=== PATIENT | male | born 1960 | race Caucasian/White ===

== ENCOUNTER 2018-05-22 08:42 | Inpatient (IN) | payer BC, OTHER ==
[2018-05-22] MEDS: SODIUM CHLORIDE 0.9% 1L BAG IV* (09:34)
[2018-05-22] MEDS: ONDANSETRON 4 MG INJ IV (09:34)
[2018-05-22 09:40] LABS: ADD MAN DIFF? NO
[2018-05-22 09:45] LABS: WHITE BLOOD COUNT 15.9 10^3/ul (4.8-10.8)
[2018-05-22 09:45] LABS: BASOPHILS % 0.3 % (0.0-2.0); EOSINOPHILS # 0.8 10^3/ul (0.0-0.5); EOSINOPHILS % 5.2 % (0.0-7.0); HEMATOCRIT 41.4 % (42.0-52.0); HEMOGLOBIN 14.4 g/dl (14.0-18.0); LYMPHOCYTES % 12.4 % (15.0-51.0); MEAN CORPUSCULAR HEMOGLOBIN 31.7 pg (29.0-33.0); MEAN CORPUSCULAR HGB CONC 34.8 g/dl (32.0-37.0); MEAN CORPUSCULAR VOLUME 91.2 fl (82.0-101.0); MEAN PLATELET VOLUME 9.4 fl (7.4-10.4); MONOCYTES % 6.1 % (0.0-11.0); NEUTROPHIL # 12.1 10^3/ul (1.6-7.5); NEUTROPHILS % 75.6 % (39.0-77.0); PLATELET COUNT 250 10^3/UL (140-415); RED BLOOD COUNT 4.54 10^6/ul (4.70-6.10); RED CELL DISTRIBUTION WIDTH 12.3 % (11.5-14.5)
[2018-05-22 10:04] LABS: ALANINE AMINOTRANSFERASE 48 IU/L (13-69); ALBUMIN 4.7 g/dl (3.3-4.9); ALBUMIN/GLOBULIN RATIO 1.42; ALKALINE PHOSPHATASE 98 IU/L (42-121); ANION GAP 19 (8-16); ASPARTATE AMINO TRANSFERASE 66 IU/L (15-46); BILIRUBIN,INDIRECT 0.6 mg/dl (0-1.1); BILIRUBIN,TOTAL 0.6 mg/dl (0.2-1.3); BLOOD UREA NITROGEN 15 mg/dl (7-20); CALCIUM 9.4 mg/dl (8.4-10.2); CARBON DIOXIDE 26 mmol/L (21-31); CHLORIDE 104 mmol/L (97-110); CREATININE 1.01 mg/dl (0.61-1.24); GLUCOSE 127 mg/dl (70-220); LIPASE 346 U/L (23-300); POTASSIUM 4.7 mmol/L (3.5-5.1); SODIUM 144 mmol/L (135-144)
[2018-05-22 10:05] LABS: ADD UMIC YES; UR ASCORBIC ACID NEGATIVE (NEGATIVE); UR BACTERIA MODERATE /HPF (NONE SEEN); UR BILIRUBIN (Dip) NEGATIVE (NEGATIVE); UR BLOOD (Dip) 2+ mg/dL (NEGATIVE); UR BUDDING YEAST FEW /HPF (NONE SEEN); UR CLARITY SLIGHTLY CLOUDY (CLEAR); UR COLOR YELLOW (YELLOW); UR GLUCOSE (Dip) NEGATIVE (NEGATIVE); UR KETONES (Dip) NEGATIVE (NEGATIVE); UR LEUKOCYTE ESTERASE (Dip) 3+ Leu/ul (NEGATIVE); UR NITRITE (Dip) NEGATIVE (NEGATIVE); UR RBC 39 /HPF (0-5); UR SPECIFIC GRAVITY (Dip) 1.014 (1.003-1.030); UR TOTAL PROTEIN (Dip) 1+ mg/dl (NEGATIVE); UR UROBILINOGEN (Dip) NEGATIVE (NEGATIVE); UR WBC > 182 /HPF (0-5)
[2018-05-22 10:10] LABS: PROTIME 13.3 Sec (11.9-14.9)
[2018-05-22 10:11] LABS: PARTIAL THROMBOPLASTIN TIME 30.3 Sec (25.0-35.0)
[2018-05-22 10:13] LABS: LACTIC ACID 2.3 mmol/L (0.5-2.0)
[2018-05-22 10:15] LABS: TROPONIN-I < 0.010 ng/ml (0.000-0.120)
[2018-05-22] MEDS: CEFTRIAXONE 1 GM/50 ML (PMX) 50 ML IVPB (10:36)
[2018-05-22] MEDS: KETOROLAC 30 MG INJ IV (11:08)
[2018-05-22] MEDS ORDERED: ONDANSETRON 4 MG INJ IV (14:00)
[2018-05-22] MEDS: ACETAMINOPHEN 325 MG TAB PO ×2 (14:10→22:22)
[2018-05-22] MEDS ORDERED: GLUCAGON 1 MG INJ IM (16:30)
[2018-05-22] MEDS ORDERED: DEXTROSE 50% 50 ML SYRINGE IV ×2 (16:30)
[2018-05-22] MEDS ORDERED: GLUCOSE GEL 15 GRAM TUBE BUCCAL (16:30)
[2018-05-22] MEDS ORDERED: GLUCOSE GEL 15 GRAM TUBE PO ×2 (16:30)
[2018-05-22] MEDS: PANTOPRAZOLE (EC) 40 MG TAB PO (17:01)
[2018-05-22] MEDS: HYDROCODONE/APAP (5/325) TAB PO (17:01)
[2018-05-22 17:02] LABS: LACTIC ACID 2.1 mmol/L (0.5-2.0)
[2018-05-22] MEDS: INSULIN ASPART [NOVOLOG] 3 ML PEN SC ×2 (17:19→21:00)
[2018-05-22 18:34] LABS: LACTIC ACID 1.9 mmol/L (0.5-2.0)
[2018-05-22] MEDS: BENAZEPRIL 20 MG TAB PO (21:00)
[2018-05-22] MEDS: MEROPENEM 1 GM/50ML(PMX) 50 ML IVPB (22:15)
[2018-05-22] MEDS: ATORVASTATIN 10 MG TAB PO (22:17)
[2018-05-23] MEDS: ACCU-CHEK XX (02:00)
[2018-05-23] MEDS: MEROPENEM 1 GM/50ML(PMX) 50 ML IVPB ×3 (06:11→21:27)
[2018-05-23] MEDS: HYDROCODONE/APAP (5/325) TAB PO ×2 (06:14→21:17)
[2018-05-23] MEDS: INSULIN ASPART [NOVOLOG] 3 ML PEN SC ×4 (08:00→20:34)
[2018-05-23 08:07] LABS: ADD MAN DIFF? NO
[2018-05-23 08:16] LABS: WHITE BLOOD COUNT 17.7 10^3/ul (4.8-10.8)
[2018-05-23 08:16] LABS: BASOPHIL # 0.1 10^3/ul (0.0-0.1); BASOPHILS % 0.3 % (0.0-2.0); EOSINOPHILS # 0.4 10^3/ul (0.0-0.5); HEMATOCRIT 36.1 % (42.0-52.0); HEMOGLOBIN 12.3 g/dl (14.0-18.0); LYMPHOCYTES # 1.7 10^3/ul (0.8-2.9); LYMPHOCYTES % 9.7 % (15.0-51.0); MEAN CORPUSCULAR HEMOGLOBIN 31.3 pg (29.0-33.0); MEAN CORPUSCULAR HGB CONC 34.1 g/dl (32.0-37.0); MEAN CORPUSCULAR VOLUME 91.9 fl (82.0-101.0); MEAN PLATELET VOLUME 9.5 fl (7.4-10.4); MONOCYTES % 5.5 % (0.0-11.0); NEUTROPHIL # 14.5 10^3/ul (1.6-7.5); NEUTROPHILS % 81.7 % (39.0-77.0); PLATELET COUNT 201 10^3/UL (140-415); RED BLOOD COUNT 3.93 10^6/ul (4.70-6.10); RED CELL DISTRIBUTION WIDTH 12.4 % (11.5-14.5)
[2018-05-23 08:31] LABS: LACTIC ACID 1.4 mmol/L (0.5-2.0)
[2018-05-23 08:32] LABS: ANION GAP 13 (8-16); BLOOD UREA NITROGEN 14 mg/dl (7-20); CALCIUM 8.2 mg/dl (8.4-10.2); CARBON DIOXIDE 23 mmol/L (21-31); CHLORIDE 106 mmol/L (97-110); CREATININE 0.98 mg/dl (0.61-1.24); GLUCOSE 137 mg/dl (70-220); POTASSIUM 3.8 mmol/L (3.5-5.1); SODIUM 138 mmol/L (135-144)
[2018-05-23] MEDS: BENAZEPRIL 20 MG TAB PO (08:55)
[2018-05-23] MEDS: ASPIRIN 81 MG TAB PO (08:55)
[2018-05-23] MEDS: PANTOPRAZOLE (EC) 40 MG TAB PO (08:56)
[2018-05-23] MEDS: metFORMIN 500 MG TAB PO ×2 (08:57→17:49)
[2018-05-23 09:02] LABS: HEMOGLOBIN A1C 7.2 % (0-5.9)
[2018-05-23] MEDS ORDERED: CEFTRIAXONE 1 GM/50 ML (PMX) 50 ML IVPB ×2 (10:00→10:30)
[2018-05-23] MEDS: ACETAMINOPHEN 325 MG TAB PO ×2 (10:37→16:17)
[2018-05-23] MEDS: ATORVASTATIN 10 MG TAB PO (20:34)
[2018-05-23] MEDS: ONDANSETRON 4 MG INJ IV (21:16)
[2018-05-24] MEDS: ACCU-CHEK XX (01:02)
[2018-05-24] MEDS: HYDROCODONE/APAP (5/325) TAB PO ×3 (02:57→20:27)
[2018-05-24] MEDS: MEROPENEM 1 GM/50ML(PMX) 50 ML IVPB ×3 (05:50→21:20)
[2018-05-24] MEDS: INSULIN ASPART [NOVOLOG] 3 ML PEN SC ×4 (08:00→20:26)
[2018-05-24] MEDS: PANTOPRAZOLE (EC) 40 MG TAB PO (08:25)
[2018-05-24] MEDS: ASPIRIN 81 MG TAB PO (08:25)
[2018-05-24] MEDS: metFORMIN 500 MG TAB PO ×2 (08:25→17:26)
[2018-05-24] MEDS: BENAZEPRIL 20 MG TAB PO (08:25)
[2018-05-24 09:15] LABS: ADD MAN DIFF? NO
[2018-05-24 09:20] LABS: BASOPHILS % 0.3 % (0.0-2.0); EOSINOPHILS # 0.6 10^3/ul (0.0-0.5); EOSINOPHILS % 4.5 % (0.0-7.0); HEMOGLOBIN 12.7 g/dl (14.0-18.0); LYMPHOCYTES # 1.7 10^3/ul (0.8-2.9); LYMPHOCYTES % 11.9 % (15.0-51.0); MEAN CORPUSCULAR HEMOGLOBIN 31.3 pg (29.0-33.0); MEAN CORPUSCULAR HGB CONC 34.3 g/dl (32.0-37.0); MEAN CORPUSCULAR VOLUME 91.1 fl (82.0-101.0); MEAN PLATELET VOLUME 9.4 fl (7.4-10.4); MONOCYTE # 0.8 10^3/ul (0.3-0.9); MONOCYTES % 5.9 % (0.0-11.0); NEUTROPHIL # 10.7 10^3/ul (1.6-7.5); NEUTROPHILS % 76.7 % (39.0-77.0); PLATELET COUNT 199 10^3/UL (140-415); RED BLOOD COUNT 4.06 10^6/ul (4.70-6.10); RED CELL DISTRIBUTION WIDTH 12.6 % (11.5-14.5)
[2018-05-24 09:36] LABS: ANION GAP 13 (8-16); BLOOD UREA NITROGEN 15 mg/dl (7-20); CALCIUM 8.9 mg/dl (8.4-10.2); CARBON DIOXIDE 23 mmol/L (21-31); CHLORIDE 105 mmol/L (97-110); GLUCOSE 148 mg/dl (70-220); POTASSIUM 4.1 mmol/L (3.5-5.1); SODIUM 137 mmol/L (135-144)
[2018-05-24] MEDS: ATORVASTATIN 10 MG TAB PO (20:27)
[2018-05-24] MEDS: DOCUSATE SODIUM 100 MG CAP PO (21:20)
[2018-05-25] MEDS: ACCU-CHEK XX (01:00)
[2018-05-25] MEDS: MEROPENEM 1 GM/50ML(PMX) 50 ML IVPB ×3 (06:07→21:24)
[2018-05-25] MEDS: INSULIN ASPART [NOVOLOG] 3 ML PEN SC ×4 (08:00→20:19)
[2018-05-25] MEDS: DOCUSATE SODIUM 100 MG CAP PO ×2 (08:06→20:17)
[2018-05-25] MEDS: PANTOPRAZOLE (EC) 40 MG TAB PO (08:06)
[2018-05-25] MEDS: ASPIRIN 81 MG TAB PO (08:06)
[2018-05-25] MEDS: BENAZEPRIL 20 MG TAB PO (08:07)
[2018-05-25] MEDS: metFORMIN 500 MG TAB PO ×2 (08:07→17:45)
[2018-05-25] MEDS: HYDROCODONE/APAP (5/325) TAB PO ×2 (10:29→19:21)
[2018-05-25] MEDS: BISACODYL (EC) 5 MG TAB PO (12:09)
[2018-05-25] MEDS: ONDANSETRON 4 MG INJ IV (15:30)
[2018-05-25] MEDS: ATORVASTATIN 10 MG TAB PO (20:17)
[2018-05-25] MEDS: ACETAMINOPHEN 325 MG TAB PO (22:58)
[2018-05-26] MEDS: ACCU-CHEK XX (01:09)
[2018-05-26] MEDS: HYDROCODONE/APAP (5/325) TAB PO (05:36)
[2018-05-26] MEDS: MEROPENEM 1 GM/50ML(PMX) 50 ML IVPB ×3 (05:36→21:37)
[2018-05-26] MEDS: INSULIN ASPART [NOVOLOG] 3 ML PEN SC ×4 (08:00→20:35)
[2018-05-26] MEDS: ASPIRIN 81 MG TAB PO (08:21)
[2018-05-26] MEDS: metFORMIN 500 MG TAB PO ×2 (08:22→17:41)
[2018-05-26] MEDS: BENAZEPRIL 20 MG TAB PO (08:22)
[2018-05-26] MEDS: DOCUSATE SODIUM 100 MG CAP PO (08:22)
[2018-05-26] MEDS: PANTOPRAZOLE (EC) 40 MG TAB PO (08:25)
[2018-05-26] MEDS ORDERED: NA PHOSPHATE/BIPHOS 133 ML ENEMA PR (16:00)
[2018-05-26] MEDS: POLYETHYLENE GLYCOL 17 GM PACKET PO (16:15)
[2018-05-26] MEDS: VALACYCLOVIR 500 MG TAB PO (20:33)
[2018-05-26] MEDS: SENNA TAB PO (20:34)
[2018-05-26] MEDS: ATORVASTATIN 10 MG TAB PO (20:34)
[2018-05-27] MEDS: HYDROCODONE/APAP (5/325) TAB PO (00:15)
[2018-05-27] MEDS: ACCU-CHEK XX (02:00)
[2018-05-27] MEDS: MEROPENEM 1 GM/50ML(PMX) 50 ML IVPB ×3 (05:14→22:53)
[2018-05-27 07:48] LABS: ADD MAN DIFF? NO
[2018-05-27] MEDS: INSULIN ASPART [NOVOLOG] 3 ML PEN SC ×4 (08:00→20:46)
[2018-05-27] MEDS: ASPIRIN 81 MG TAB PO (08:06)
[2018-05-27] MEDS: metFORMIN 500 MG TAB PO ×2 (08:06→17:34)
[2018-05-27 08:07] LABS: WHITE BLOOD COUNT 5.8 10^3/ul (4.8-10.8)
[2018-05-27 08:07] LABS: BASOPHIL # 0.1 10^3/ul (0.0-0.1); BASOPHILS % 1.4 % (0.0-2.0); EOSINOPHILS # 0.7 10^3/ul (0.0-0.5); EOSINOPHILS % 12.5 % (0.0-7.0); HEMATOCRIT 38.1 % (42.0-52.0); HEMOGLOBIN 13.3 g/dl (14.0-18.0); LYMPHOCYTES # 2.1 10^3/ul (0.8-2.9); MEAN CORPUSCULAR HEMOGLOBIN 31.6 pg (29.0-33.0); MEAN CORPUSCULAR HGB CONC 34.9 g/dl (32.0-37.0); MEAN CORPUSCULAR VOLUME 90.5 fl (82.0-101.0); MEAN PLATELET VOLUME 9.2 fl (7.4-10.4); MONOCYTE # 0.7 10^3/ul (0.3-0.9); MONOCYTES % 12.5 % (0.0-11.0); PLATELET COUNT 252 10^3/UL (140-415); RED BLOOD COUNT 4.21 10^6/ul (4.70-6.10); RED CELL DISTRIBUTION WIDTH 12.2 % (11.5-14.5)
[2018-05-27] MEDS: SENNA TAB PO ×2 (08:07→20:45)
[2018-05-27] MEDS: BENAZEPRIL 20 MG TAB PO (08:07)
[2018-05-27] MEDS: PANTOPRAZOLE (EC) 40 MG TAB PO (08:07)
[2018-05-27] MEDS: VALACYCLOVIR 500 MG TAB PO (08:08)
[2018-05-27] MEDS: POLYETHYLENE GLYCOL 17 GM PACKET PO (08:08)
[2018-05-27 08:18] LABS: ANION GAP 13 (8-16); BLOOD UREA NITROGEN 14 mg/dl (7-20); CALCIUM 9.4 mg/dl (8.4-10.2); CARBON DIOXIDE 29 mmol/L (21-31); CHLORIDE 103 mmol/L (97-110); CREATININE 0.91 mg/dl (0.61-1.24); GLUCOSE 116 mg/dl (70-220); POTASSIUM 4.1 mmol/L (3.5-5.1); SODIUM 141 mmol/L (135-144)
[2018-05-27] MEDS: ACET/BUTAL/CAFF TAB PO (17:34)
[2018-05-27] MEDS: ONDANSETRON 4 MG INJ IV (17:37)
[2018-05-27] MEDS: ATORVASTATIN 10 MG TAB PO (20:45)
[2018-05-28] MEDS: ACCU-CHEK XX (02:00)
[2018-05-28] MEDS: MEROPENEM 1 GM/50ML(PMX) 50 ML IVPB ×2 (05:50→14:04)
[2018-05-28 06:15] LABS: ADD MAN DIFF? NO
[2018-05-28 06:34] LABS: WHITE BLOOD COUNT 10.1 10^3/ul (4.8-10.8)
[2018-05-28 06:34] LABS: BASOPHIL # 0.1 10^3/ul (0.0-0.1); BASOPHILS % 0.5 % (0.0-2.0); EOSINOPHILS # 0.6 10^3/ul (0.0-0.5); EOSINOPHILS % 5.6 % (0.0-7.0); HEMATOCRIT 37.7 % (42.0-52.0); HEMOGLOBIN 13.1 g/dl (14.0-18.0); LYMPHOCYTES # 2.3 10^3/ul (0.8-2.9); LYMPHOCYTES % 23.2 % (15.0-51.0); MEAN CORPUSCULAR HEMOGLOBIN 31.3 pg (29.0-33.0); MEAN CORPUSCULAR HGB CONC 34.7 g/dl (32.0-37.0); MEAN PLATELET VOLUME 9.4 fl (7.4-10.4); NEUTROPHIL # 5.9 10^3/ul (1.6-7.5); NEUTROPHILS % 58.4 % (39.0-77.0); PLATELET COUNT 284 10^3/UL (140-415); RED BLOOD COUNT 4.19 10^6/ul (4.70-6.10); RED CELL DISTRIBUTION WIDTH 12.1 % (11.5-14.5)
[2018-05-28 06:43] LABS: ANION GAP 18 (8-16); BLOOD UREA NITROGEN 37 mg/dl (7-20); CALCIUM 9.7 mg/dl (8.4-10.2); CARBON DIOXIDE 23 mmol/L (21-31); CHLORIDE 105 mmol/L (97-110); CREATININE 3.67 mg/dl (0.61-1.24); GLUCOSE 117 mg/dl (70-220); POTASSIUM 4.6 mmol/L (3.5-5.1); SODIUM 141 mmol/L (135-144)
[2018-05-28] MEDS: INSULIN ASPART [NOVOLOG] 3 ML PEN SC ×4 (08:00→21:00)
[2018-05-28] MEDS: POLYETHYLENE GLYCOL 17 GM PACKET PO (08:22)
[2018-05-28] MEDS: BENAZEPRIL 20 MG TAB PO (08:23)
[2018-05-28] MEDS: PANTOPRAZOLE (EC) 40 MG TAB PO (08:23)
[2018-05-28] MEDS: SENNA TAB PO ×2 (08:23→21:00)
[2018-05-28] MEDS: ASPIRIN 81 MG TAB PO (08:23)
[2018-05-28] MEDS: metFORMIN 500 MG TAB PO ×2 (08:23→17:38)
[2018-05-28] MEDS: SOD CHLORIDE 0.45% 1,000 ML IV ×2 (12:55→21:48)
[2018-05-28 19:39] LABS: ANION GAP 15 (8-16); BLOOD UREA NITROGEN 42 mg/dl (7-20); CALCIUM 9.3 mg/dl (8.4-10.2); CARBON DIOXIDE 23 mmol/L (21-31); CHLORIDE 103 mmol/L (97-110); CREATININE 4.29 mg/dl (0.61-1.24); GLUCOSE 138 mg/dl (70-220); POTASSIUM 4.4 mmol/L (3.5-5.1); SODIUM 137 mmol/L (135-144)
[2018-05-28] MEDS: MEROPENEM 500MG/50 ML (PMX) 50 ML IVPB (20:28)
[2018-05-28] MEDS: ATORVASTATIN 10 MG TAB PO (20:29)
[2018-05-28] MEDS: HYDROCODONE/APAP (5/325) TAB PO (21:49)
[2018-05-29] MEDS: ACCU-CHEK XX (01:56)
[2018-05-29] MEDS: INSULIN ASPART [NOVOLOG] 3 ML PEN SC ×4 (08:00→21:00)
[2018-05-29 08:02] LABS: ADD MAN DIFF? NO
[2018-05-29 08:16] LABS: BASOPHIL # 0.1 10^3/ul (0.0-0.1); BASOPHILS % 0.8 % (0.0-2.0); EOSINOPHILS # 0.7 10^3/ul (0.0-0.5); EOSINOPHILS % 9.8 % (0.0-7.0); HEMATOCRIT 36.2 % (42.0-52.0); HEMOGLOBIN 12.4 g/dl (14.0-18.0); LYMPHOCYTES # 2.3 10^3/ul (0.8-2.9); LYMPHOCYTES % 30.6 % (15.0-51.0); MEAN CORPUSCULAR HEMOGLOBIN 31.3 pg (29.0-33.0); MEAN CORPUSCULAR HGB CONC 34.3 g/dl (32.0-37.0); MEAN CORPUSCULAR VOLUME 91.4 fl (82.0-101.0); MEAN PLATELET VOLUME 9.3 fl (7.4-10.4); MONOCYTE # 0.7 10^3/ul (0.3-0.9); MONOCYTES % 9.5 % (0.0-11.0); NEUTROPHIL # 3.6 10^3/ul (1.6-7.5); NEUTROPHILS % 47.3 % (39.0-77.0); PLATELET COUNT 279 10^3/UL (140-415); RED BLOOD COUNT 3.96 10^6/ul (4.70-6.10); RED CELL DISTRIBUTION WIDTH 12.1 % (11.5-14.5)
[2018-05-29 08:16] LABS: WHITE BLOOD COUNT 7.6 10^3/ul (4.8-10.8)
[2018-05-29 08:46] LABS: CREATINE KINASE 51 IU/L (23-200)
[2018-05-29] MEDS: SENNA TAB PO ×2 (08:47→21:13)
[2018-05-29] MEDS: PANTOPRAZOLE (EC) 40 MG TAB PO (08:47)
[2018-05-29] MEDS: metFORMIN 500 MG TAB PO (08:47)
[2018-05-29] MEDS: ASPIRIN 81 MG TAB PO (08:47)
[2018-05-29] MEDS: POLYETHYLENE GLYCOL 17 GM PACKET PO (08:48)
[2018-05-29] MEDS: MEROPENEM 500MG/50 ML (PMX) 50 ML IVPB (08:48)
[2018-05-29 08:50] LABS: ANION GAP 16 (8-16); BLOOD UREA NITROGEN 41 mg/dl (7-20); CALCIUM 9.3 mg/dl (8.4-10.2); CARBON DIOXIDE 23 mmol/L (21-31); CHLORIDE 104 mmol/L (97-110); CREATININE 3.93 mg/dl (0.61-1.24); GLUCOSE 116 mg/dl (70-220); POTASSIUM 4.6 mmol/L (3.5-5.1); SODIUM 138 mmol/L (135-144)
[2018-05-29] MEDS: SOD CHLORIDE 0.45% 1,000 ML IV (12:30)
[2018-05-29 15:02] LABS: CREATININE,URINE RANDOM 68.05 mg/dl (20-370); PROTEIN/CREAT RATIO 0.32 RATIO
[2018-05-29 15:02] LABS: SODIUM,URINE RANDOM 80 mmol/L (30-90)
[2018-05-29] MEDS: ONDANSETRON 4 MG INJ IV (16:13)
[2018-05-29] MEDS: ATORVASTATIN 10 MG TAB PO (21:14)
[2018-05-30] MEDS: ACCU-CHEK XX (02:00)
[2018-05-30] MEDS: SOD CHLORIDE 0.45% 1,000 ML IV ×3 (03:51→21:05)
[2018-05-30 05:37] LABS: ANION GAP 19 (8-16); BLOOD UREA NITROGEN 33 mg/dl (7-20); CALCIUM 9.5 mg/dl (8.4-10.2); CARBON DIOXIDE 23 mmol/L (21-31); CHLORIDE 108 mmol/L (97-110); CREATININE 2.48 mg/dl (0.61-1.24); GLUCOSE 125 mg/dl (70-220); POTASSIUM 4.6 mmol/L (3.5-5.1); SODIUM 145 mmol/L (135-144)
[2018-05-30] MEDS: ONDANSETRON 4 MG INJ IV (07:42)
[2018-05-30] MEDS: INSULIN ASPART [NOVOLOG] 3 ML PEN SC ×6 (07:54→21:00)
[2018-05-30] MEDS: PANTOPRAZOLE (EC) 40 MG TAB PO (09:07)
[2018-05-30] MEDS: ASPIRIN 81 MG TAB PO (09:07)
[2018-05-30] MEDS: POLYETHYLENE GLYCOL 17 GM PACKET PO (09:07)
[2018-05-30] MEDS: SENNA TAB PO ×2 (09:07→21:04)
[2018-05-30] MEDS: ATORVASTATIN 10 MG TAB PO (21:05)
[2018-05-31] MEDS: ACCU-CHEK XX (02:00)
[2018-05-31 06:50] LABS: ADD MAN DIFF? NO
[2018-05-31 07:02] LABS: BASOPHIL # 0.1 10^3/ul (0.0-0.1); BASOPHILS % 0.7 % (0.0-2.0); EOSINOPHILS # 0.7 10^3/ul (0.0-0.5); EOSINOPHILS % 10.4 % (0.0-7.0); HEMATOCRIT 36.1 % (42.0-52.0); HEMOGLOBIN 12.5 g/dl (14.0-18.0); LYMPHOCYTES # 2.7 10^3/ul (0.8-2.9); LYMPHOCYTES % 39.8 % (15.0-51.0); MEAN CORPUSCULAR HEMOGLOBIN 31.2 pg (29.0-33.0); MEAN CORPUSCULAR HGB CONC 34.6 g/dl (32.0-37.0); MONOCYTE # 0.5 10^3/ul (0.3-0.9); MONOCYTES % 7.7 % (0.0-11.0); NEUTROPHIL # 2.7 10^3/ul (1.6-7.5); NEUTROPHILS % 40.5 % (39.0-77.0); PLATELET COUNT 319 10^3/UL (140-415); RED BLOOD COUNT 4.01 10^6/ul (4.70-6.10); RED CELL DISTRIBUTION WIDTH 11.9 % (11.5-14.5)
[2018-05-31 07:02] LABS: WHITE BLOOD COUNT 6.8 10^3/ul (4.8-10.8)
[2018-05-31 07:36] LABS: ANION GAP 19 (8-16); BLOOD UREA NITROGEN 21 mg/dl (7-20); CALCIUM 9.1 mg/dl (8.4-10.2); CARBON DIOXIDE 22 mmol/L (21-31); CHLORIDE 109 mmol/L (97-110); CREATININE 1.44 mg/dl (0.61-1.24); GLUCOSE 110 mg/dl (70-220); POTASSIUM 4.6 mmol/L (3.5-5.1); SODIUM 145 mmol/L (135-144)
[2018-05-31] MEDS: INSULIN ASPART [NOVOLOG] 3 ML PEN SC ×4 (08:00→21:00)
[2018-05-31] MEDS: ASPIRIN 81 MG TAB PO (08:31)
[2018-05-31] MEDS: SENNA TAB PO ×2 (08:31→20:23)
[2018-05-31] MEDS: PANTOPRAZOLE (EC) 40 MG TAB PO (08:31)
[2018-05-31] MEDS: SOD CHLORIDE 0.45% 1,000 ML IV (08:32)
[2018-05-31] MEDS: POLYETHYLENE GLYCOL 17 GM PACKET PO (08:32)
[2018-05-31] MEDS: ATORVASTATIN 10 MG TAB PO (20:23)
[2018-06-01] MEDS: ACCU-CHEK XX (02:00)
[2018-06-01] MEDS: SOD CHLORIDE 0.45% 1,000 ML IV (02:38)
[2018-06-01 07:21] LABS: ANION GAP 17 (8-16); BLOOD UREA NITROGEN 14 mg/dl (7-20); CARBON DIOXIDE 25 mmol/L (21-31); CHLORIDE 108 mmol/L (97-110); CREATININE 1.11 mg/dl (0.61-1.24); GLUCOSE 138 mg/dl (70-220); POTASSIUM 4.3 mmol/L (3.5-5.1); SODIUM 146 mmol/L (135-144)
[2018-06-01] MEDS: INSULIN ASPART [NOVOLOG] 3 ML PEN SC ×2 (07:56→12:37)
[2018-06-01] MEDS: PANTOPRAZOLE (EC) 40 MG TAB PO (08:22)
[2018-06-01] MEDS: ASPIRIN 81 MG TAB PO (08:22)
[2018-06-01] MEDS: SENNA TAB PO (08:23)
[2018-06-01] MEDS: POLYETHYLENE GLYCOL 17 GM PACKET PO (08:24)
== END 2018-06-01 15:40 | disposition home or self-care (01) | DRG 871 ==
LOC: FTE 08:42 → 2NE 13:33
DX: A41.9 Sepsis, unspecified organism (principal); N17.0 Acute kidney failure with tubular necrosis; N30.00 Acute cystitis without hematuria; I10 Essential (primary) hypertension; E78.5 Hyperlipidemia, unspecified; E87.6 Hypokalemia; B00.1 Herpesviral vesicular dermatitis; G44.209 Tension-type headache, unspecified, not intractable; R65.20 Severe sepsis without septic shock; Z87.891 Personal history of nicotine dependence; Z79.4 Long term (current) use of insulin; Z79.84 Long term (current) use of oral hypoglycemic drugs; Z79.82 Long term (current) use of aspirin; I25.2 Old myocardial infarction; Z86.13 Personal history of malaria
CPT/HCPCS: 36415; 70450; 70551; 71045; 76775; 80048; 80053; 81001; 81003; 82550; 82570; 82962; 83036; 83605; 83690; 84300; 84484; 84560; 85025; 85610; 85730; 87040; 87086; 89190; 93005; 96365; 96366; 96375; 99291-25

== ENCOUNTER 2018-11-08 22:44 | Inpatient (IN) | payer BC ==
[2018-11-08 23:36] LABS: ADD MAN DIFF? NO
[2018-11-08] MEDS: morphine 4 MG/ML VIAL IV (23:40)
[2018-11-08] MEDS: CEFTRIAXONE 1 GM/50 ML (PMX) 50 ML IVPB (23:40)
[2018-11-08 23:41] LABS: WHITE BLOOD COUNT 14.8 10^3/ul (4.8-10.8)
[2018-11-08 23:41] LABS: BASOPHILS % 0.3 % (0.0-2.0); EOSINOPHILS # 0.5 10^3/ul (0.0-0.5); EOSINOPHILS % 3.2 % (0.0-7.0); HEMATOCRIT 40.7 % (42.0-52.0); LYMPHOCYTES # 1.2 10^3/ul (0.8-2.9); LYMPHOCYTES % 8.2 % (15.0-51.0); MEAN CORPUSCULAR HEMOGLOBIN 30.6 pg (29.0-33.0); MEAN CORPUSCULAR HGB CONC 34.4 g/dl (32.0-37.0); MEAN CORPUSCULAR VOLUME 89.1 fl (82.0-101.0); MEAN PLATELET VOLUME 9.6 fl (7.4-10.4); MONOCYTE # 0.9 10^3/ul (0.3-0.9); MONOCYTES % 5.9 % (0.0-11.0); NEUTROPHIL # 12.1 10^3/ul (1.6-7.5); NEUTROPHILS % 82.1 % (39.0-77.0); PLATELET COUNT 209 10^3/UL (140-415); RED BLOOD COUNT 4.57 10^6/ul (4.70-6.10); RED CELL DISTRIBUTION WIDTH 11.9 % (11.5-14.5)
[2018-11-08] MEDS: SODIUM CHLORIDE 0.9% 1L BAG IV* (23:41)
[2018-11-08 23:58] LABS: UR BACTERIA MODERATE /HPF (NONE SEEN); UR RBC > 182 /HPF (0-5); UR WBC > 182 /HPF (0-5)
[2018-11-09] LABS: ALANINE AMINOTRANSFERASE 42 IU/L (13-69); ALBUMIN 4.5 g/dl (3.3-4.9); ALBUMIN/GLOBULIN RATIO 1.28; ALKALINE PHOSPHATASE 107 IU/L (42-121); ANION GAP 10 (5-13); ASPARTATE AMINO TRANSFERASE 48 IU/L (15-46); BILIRUBIN,INDIRECT 1.5 mg/dl (0-1.1); BILIRUBIN,TOTAL 1.5 mg/dl (0.2-1.3); BLOOD UREA NITROGEN 12 mg/dl (7-20); CALCIUM 9.4 mg/dl (8.4-10.2); CARBON DIOXIDE 24 mmol/L (21-31); CHLORIDE 104 mmol/L (97-110); Estimated GFR > 60 mL/min (>60); GLUCOSE 253 mg/dl (70-220); LIPASE 73 U/L (23-300); PARTIAL THROMBOPLASTIN TIME 34.2 Sec (23.0-35.0); POTASSIUM 3.8 mmol/L (3.5-5.1); PROTIME 14.3 Sec (11.9-14.9); PT RATIO 1.1; SODIUM 138 mmol/L (135-144)
[2018-11-09 00:12] LABS: ADD UMIC YES; TROPONIN-I < 0.012 ng/ml (0.000-0.120); UR ASCORBIC ACID NEGATIVE (NEGATIVE); UR BILIRUBIN (Dip) NEGATIVE (NEGATIVE); UR BLOOD (Dip) 2+ mg/dL (NEGATIVE); UR CLARITY TURBID (CLEAR); UR COLOR AMBER (YELLOW); UR GLUCOSE (Dip) 2+ mg/dL (NEGATIVE); UR KETONES (Dip) TRACE mg/dL (NEGATIVE); UR LEUKOCYTE ESTERASE (Dip) 2+ Leu/ul (NEGATIVE); UR MUCUS MANY /HPF (NONE SEEN); UR NITRITE (Dip) NEGATIVE (NEGATIVE); UR SPECIFIC GRAVITY (Dip) 1.031 (1.003-1.030); UR TOTAL PROTEIN (Dip) 2+ mg/dl (NEGATIVE); UR UROBILINOGEN (Dip) 2+ mg/dL (NEGATIVE)
[2018-11-09 01:16] LABS: C-REACTIVE PROTEIN 19.1 mg/dl (0.0-0.9)
[2018-11-09] MEDS: ACCU-CHEK XX (02:00)
[2018-11-09] MEDS: SOD CHLORIDE 0.9% 1,000 ML IV ×3 (02:13→22:14)
[2018-11-09 02:28] LABS: LACTIC ACID 1.3 mmol/L (0.5-2.0)
[2018-11-09] MEDS ORDERED: DEXTROSE 50% 50 ML SYRINGE IV ×2 (02:30)
[2018-11-09] MEDS ORDERED: GLUCOSE GEL 15 GRAM TUBE PO ×2 (02:30)
[2018-11-09] MEDS ORDERED: GLUCOSE GEL 15 GRAM TUBE BUCCAL (02:30)
[2018-11-09] MEDS ORDERED: GLUCAGON 1 MG INJ IM (02:30)
[2018-11-09] MEDS: morphine 2 MG INJ IV ×3 (04:20→18:48)
[2018-11-09] MEDS: ACETAMINOPHEN 325 MG TAB PO ×2 (04:26→15:41)
[2018-11-09 04:47] LABS: ADD MAN DIFF? NO
[2018-11-09] MEDS: ONDANSETRON 4 MG INJ IV (04:47)
[2018-11-09 04:48] LABS: BASOPHIL # 0.1 10^3/ul (0.0-0.1); BASOPHILS % 0.4 % (0.0-2.0); EOSINOPHILS # 0.1 10^3/ul (0.0-0.5); EOSINOPHILS % 0.7 % (0.0-7.0); HEMATOCRIT 40.1 % (42.0-52.0); HEMOGLOBIN 13.3 g/dl (14.0-18.0); LYMPHOCYTES # 1.7 10^3/ul (0.8-2.9); LYMPHOCYTES % 12.3 % (15.0-51.0); MEAN CORPUSCULAR HEMOGLOBIN 30.9 pg (29.0-33.0); MEAN CORPUSCULAR HGB CONC 33.2 g/dl (32.0-37.0); MEAN CORPUSCULAR VOLUME 93.3 fl (82.0-101.0); MEAN PLATELET VOLUME 9.6 fl (7.4-10.4); MONOCYTE # 0.2 10^3/ul (0.3-0.9); MONOCYTES % 1.1 % (0.0-11.0); NEUTROPHIL # 11.4 10^3/ul (1.6-7.5); NEUTROPHILS % 84.9 % (39.0-77.0); PLATELET COUNT 197 10^3/UL (140-415); POSITIVE DIFF @See below; RED CELL DISTRIBUTION WIDTH 12.1 % (11.5-14.5)
[2018-11-09 04:48] LABS: WHITE BLOOD COUNT 13.5 10^3/ul (4.8-10.8)
[2018-11-09 05:08] LABS: CREATINE KINASE 165 IU/L (23-200)
[2018-11-09 05:09] LABS: LACTIC ACID 4.7 mmol/L (0.5-2.0)
[2018-11-09 05:12] LABS: ANION GAP 9 (5-13); BLOOD UREA NITROGEN 10 mg/dl (7-20); CALCIUM 8.8 mg/dl (8.4-10.2); CARBON DIOXIDE 23 mmol/L (21-31); CHLORIDE 108 mmol/L (97-110); CREATININE 1.12 mg/dl (0.61-1.24); Estimated GFR > 60 mL/min (>60); GLUCOSE 220 mg/dl (70-220); POTASSIUM 4.5 mmol/L (3.5-5.1); SODIUM 140 mmol/L (135-144)
[2018-11-09 05:21] LABS: CK INDEX 0.4; CK-MB 0.64 ng/ml (0.0-2.4); TROPONIN-I 0.012 ng/ml (0.000-0.120)
[2018-11-09 07:12] LABS: ANISOCYTOSIS 1+ (0-0); BAND NEUTROPHILS % (M) 8 % (0-4); LYMPHOCYTES #M 1.8 10^3/ul (0.8-2.9); LYMPHOCYTES % (M) 14 % (15-51); MICROCYTOSIS 1+ (0-0); MONOCYTE #M 0.6 10^3/ul (0.3-0.9); MONOCYTES % (M) 5 % (0-11); PLATELET ESTIMATE NORMAL; SEGMENTED NEUTROPHILS (M) % 73 % (39-77); SMUDGE%M 2 % (0-0)
[2018-11-09] MEDS: ENOXAPARIN 30 MG/0.3 ML SYG SC (08:05)
[2018-11-09] MEDS: INSULIN ASPART [NOVOLOG] 3 ML PEN SC ×4 (08:09→20:54)
[2018-11-09 08:50] LABS: LACTIC ACID 1.8 mmol/L (0.5-2.0)
[2018-11-09 09:32] LABS: CREATINE KINASE 144 IU/L (23-200)
[2018-11-09 09:44] LABS: CK INDEX 0.4; CK-MB 0.57 ng/ml (0.0-2.4); TROPONIN-I < 0.012 ng/ml (0.000-0.120)
[2018-11-09] MEDS ORDERED: metFORMIN 500 MG TAB PO (21:00)
[2018-11-09] MEDS: CEFTRIAXONE 1 GM/50 ML (PMX) 50 ML IVPB (23:03)
[2018-11-10] MEDS: morphine 2 MG INJ IV ×3 (01:01→17:13)
[2018-11-10] MEDS: ACETAMINOPHEN 325 MG TAB PO ×3 (02:00→20:41)
[2018-11-10] MEDS: ACCU-CHEK XX (02:00)
[2018-11-10] MEDS: metFORMIN 500 MG TAB PO ×2 (07:50→17:28)
[2018-11-10] MEDS: SOD CHLORIDE 0.9% 1,000 ML IV ×3 (07:50→20:48)
[2018-11-10] MEDS: INSULIN ASPART [NOVOLOG] 3 ML PEN SC ×4 (07:52→20:45)
[2018-11-10] MEDS: FAMOTIDINE 20 MG TAB PO (08:36)
[2018-11-10] MEDS: ASPIRIN 81 MG TAB PO (08:36)
[2018-11-10] MEDS: BENAZEPRIL 20 MG TAB PO (08:37)
[2018-11-10] MEDS: ENOXAPARIN 30 MG/0.3 ML SYG SC (08:39)
[2018-11-11] MEDS: CEFTRIAXONE 1 GM/50 ML (PMX) 50 ML IVPB ×2 (00:13→23:37)
[2018-11-11] MEDS: HYDROmorphONE 1 MG/ML SYG IV ×3 (00:16→17:22)
[2018-11-11] MEDS: ACCU-CHEK XX (02:00)
[2018-11-11] MEDS: ACETAMINOPHEN 325 MG TAB PO (06:41)
[2018-11-11 07:56] LABS: ADD MAN DIFF? NO
[2018-11-11 08:01] LABS: BASOPHILS % 0.5 % (0.0-2.0); EOSINOPHILS # 0.5 10^3/ul (0.0-0.5); EOSINOPHILS % 7.6 % (0.0-7.0); HEMOGLOBIN 11.7 g/dl (14.0-18.0); MEAN CORPUSCULAR HEMOGLOBIN 30.9 pg (29.0-33.0); MEAN CORPUSCULAR HGB CONC 34.4 g/dl (32.0-37.0); MEAN CORPUSCULAR VOLUME 89.7 fl (82.0-101.0); MEAN PLATELET VOLUME 9.9 fl (7.4-10.4); MONOCYTE # 0.4 10^3/ul (0.3-0.9); MONOCYTES % 6.2 % (0.0-11.0); NEUTROPHIL # 4.4 10^3/ul (1.6-7.5); NEUTROPHILS % 69.9 % (39.0-77.0); PLATELET COUNT 181 10^3/UL (140-415); RED BLOOD COUNT 3.79 10^6/ul (4.70-6.10)
[2018-11-11 08:01] LABS: WHITE BLOOD COUNT 6.3 10^3/ul (4.8-10.8)
[2018-11-11] MEDS: ASPIRIN 81 MG TAB PO (08:53)
[2018-11-11] MEDS: BENAZEPRIL 20 MG TAB PO (08:53)
[2018-11-11] MEDS: FAMOTIDINE 20 MG TAB PO (08:54)
[2018-11-11] MEDS: metFORMIN 500 MG TAB PO ×2 (08:54→17:12)
[2018-11-11 08:55] LABS: ANION GAP 5 (5-13); BLOOD UREA NITROGEN 7 mg/dl (7-20); CALCIUM 8.9 mg/dl (8.4-10.2); CARBON DIOXIDE 23 mmol/L (21-31); CHLORIDE 109 mmol/L (97-110); CREATININE 0.83 mg/dl (0.61-1.24); Estimated GFR > 60 mL/min (>60); GLUCOSE 182 mg/dl (70-220); SODIUM 137 mmol/L (135-144)
[2018-11-11] MEDS: INSULIN ASPART [NOVOLOG] 3 ML PEN SC ×4 (08:56→20:41)
[2018-11-11] MEDS: ENOXAPARIN 30 MG/0.3 ML SYG SC (08:56)
[2018-11-11 08:58] LABS: HEMOGLOBIN A1C 8.7 % (0-5.9)
[2018-11-11] MEDS: SOD CHLORIDE 0.9% 1,000 ML IV ×2 (09:00→17:12)
[2018-11-11] MEDS: ONDANSETRON 4 MG INJ IV (17:18)
[2018-11-11] MEDS: HYDROCODONE/APAP (5/325) TAB PO (20:42)
[2018-11-12] MEDS: ACCU-CHEK XX ×2 (01:34→21:23)
[2018-11-12] MEDS: HYDROmorphONE 1 MG/ML SYG IV (02:15)
[2018-11-12] MEDS: SOD CHLORIDE 0.9% 1,000 ML IV ×5 (02:16→20:35)
[2018-11-12 05:56] LABS: ADD MAN DIFF? NO
[2018-11-12 06:06] LABS: WHITE BLOOD COUNT 4.5 10^3/ul (4.8-10.8)
[2018-11-12 06:06] LABS: BASOPHILS % 0.7 % (0.0-2.0); EOSINOPHILS # 0.5 10^3/ul (0.0-0.5); EOSINOPHILS % 12.1 % (0.0-7.0); HEMATOCRIT 32.5 % (42.0-52.0); LYMPHOCYTES # 1.4 10^3/ul (0.8-2.9); LYMPHOCYTES % 30.8 % (15.0-51.0); MEAN CORPUSCULAR HEMOGLOBIN 30.5 pg (29.0-33.0); MEAN CORPUSCULAR HGB CONC 33.8 g/dl (32.0-37.0); MEAN PLATELET VOLUME 9.9 fl (7.4-10.4); MONOCYTE # 0.5 10^3/ul (0.3-0.9); MONOCYTES % 11.7 % (0.0-11.0); NEUTROPHIL # 1.9 10^3/ul (1.6-7.5); NEUTROPHILS % 42.5 % (39.0-77.0); PLATELET COUNT 201 10^3/UL (140-415); RED BLOOD COUNT 3.61 10^6/ul (4.70-6.10); RED CELL DISTRIBUTION WIDTH 11.9 % (11.5-14.5)
[2018-11-12] MEDS: ASPIRIN 81 MG TAB PO (08:12)
[2018-11-12] MEDS: FAMOTIDINE 20 MG TAB PO (08:12)
[2018-11-12] MEDS: metFORMIN 500 MG TAB PO ×2 (08:12→17:26)
[2018-11-12] MEDS: BENAZEPRIL 20 MG TAB PO (08:13)
[2018-11-12] MEDS: INSULIN ASPART [NOVOLOG] 3 ML PEN SC ×4 (08:17→21:00)
[2018-11-12] MEDS: ENOXAPARIN 30 MG/0.3 ML SYG SC (08:18)
[2018-11-12] MEDS: ACETAMINOPHEN 325 MG TAB PO (11:36)
[2018-11-12] MEDS: HYDROCODONE/APAP (5/325) TAB PO (13:49)
[2018-11-12] MEDS: CIPROFLOXACIN 500 MG TAB PO (17:28)
[2018-11-12] MEDS: INSULIN GLARGINE [LANTus] (100 UNITS/ML) SYG SC (21:20)
[2018-11-13] MEDS: SOD CHLORIDE 0.9% 1,000 ML IV (00:28)
[2018-11-13 05:49] LABS: ADD MAN DIFF? NO
[2018-11-13 05:51] LABS: BASOPHIL # 0.1 10^3/ul (0.0-0.1); BASOPHILS % 1.1 % (0.0-2.0); EOSINOPHILS # 0.6 10^3/ul (0.0-0.5); EOSINOPHILS % 10.2 % (0.0-7.0); HEMATOCRIT 37.5 % (42.0-52.0); HEMOGLOBIN 12.6 g/dl (14.0-18.0); LYMPHOCYTES # 1.7 10^3/ul (0.8-2.9); LYMPHOCYTES % 30.3 % (15.0-51.0); MEAN CORPUSCULAR HEMOGLOBIN 29.9 pg (29.0-33.0); MEAN CORPUSCULAR HGB CONC 33.6 g/dl (32.0-37.0); MEAN CORPUSCULAR VOLUME 88.9 fl (82.0-101.0); MEAN PLATELET VOLUME 9.5 fl (7.4-10.4); MONOCYTE # 0.7 10^3/ul (0.3-0.9); MONOCYTES % 11.8 % (0.0-11.0); NEUTROPHIL # 2.4 10^3/ul (1.6-7.5); NEUTROPHILS % 42.9 % (39.0-77.0); PLATELET COUNT 247 10^3/UL (140-415); RED BLOOD COUNT 4.22 10^6/ul (4.70-6.10)
[2018-11-13 05:51] LABS: WHITE BLOOD COUNT 5.7 10^3/ul (4.8-10.8)
[2018-11-13] MEDS: CIPROFLOXACIN 500 MG TAB PO (06:00)
[2018-11-13 06:32] LABS: ANION GAP 12 (5-13); BLOOD UREA NITROGEN 9 mg/dl (7-20); CALCIUM 9.4 mg/dl (8.4-10.2); CARBON DIOXIDE 26 mmol/L (21-31); CHLORIDE 104 mmol/L (97-110); CREATININE 0.89 mg/dl (0.61-1.24); Estimated GFR > 60 mL/min (>60); GLUCOSE 134 mg/dl (70-220); POTASSIUM 3.5 mmol/L (3.5-5.1); SODIUM 142 mmol/L (135-144)
[2018-11-13] MEDS: INSULIN ASPART [NOVOLOG] 3 ML PEN SC ×2 (08:00→12:00)
[2018-11-13] MEDS: ASPIRIN 81 MG TAB PO (08:09)
[2018-11-13] MEDS: BENAZEPRIL 20 MG TAB PO (08:09)
[2018-11-13] MEDS: LINAGLIPTIN 5 MG TABLET PO (08:09)
[2018-11-13] MEDS: FAMOTIDINE 20 MG TAB PO (08:10)
[2018-11-13] MEDS: metFORMIN 500 MG TAB PO (08:10)
[2018-11-13] MEDS: ENOXAPARIN 30 MG/0.3 ML SYG SC (08:12)
== END 2018-11-13 13:50 | disposition home or self-care (01) | DRG 872 ==
LOC: E/R 22:44 → 2NE 11-09 00:19
PROVIDERS: Internal Medicine
DX: A41.9 Sepsis, unspecified organism (principal); N39.0 Urinary tract infection, site not specified; B96.20 Unspecified Escherichia coli [E. coli] as the cause of diseases classified elsewhere; E11.9 Type 2 diabetes mellitus without complications; E78.5 Hyperlipidemia, unspecified; I10 Essential (primary) hypertension; I25.10 Atherosclerotic heart disease of native coronary artery without angina pectoris; N40.0 Benign prostatic hyperplasia without lower urinary tract symptoms; R07.9 Chest pain, unspecified; R51 Headache; I25.2 Old myocardial infarction; Z79.84 Long term (current) use of oral hypoglycemic drugs; Z87.891 Personal history of nicotine dependence
CPT/HCPCS: 36415; 70450; 71045; 74176; 80048; 80053; 81001; 82550; 82553; 82962; 83036; 83605; 83690; 84484; 85025; 85610; 85730; 86140; 87040; 87086; 93005; 96365; 96375; 99291-25

== ENCOUNTER 2018-12-04 15:34 | Emergency (ER) | payer BC ==
[2018-12-05 00:12] LABS: ADD MAN DIFF? NO
[2018-12-05 00:17] LABS: BASOPHIL # 0.1 10^3/ul (0.0-0.1); BASOPHILS % 0.4 % (0.0-2.0); EOSINOPHILS # 0.7 10^3/ul (0.0-0.5); EOSINOPHILS % 4.6 % (0.0-7.0); HEMATOCRIT 36.9 % (42.0-52.0); HEMOGLOBIN 12.4 g/dl (14.0-18.0); LYMPHOCYTES # 3.2 10^3/ul (0.8-2.9); LYMPHOCYTES % 20.6 % (15.0-51.0); MEAN CORPUSCULAR HEMOGLOBIN 30.5 pg (29.0-33.0); MEAN CORPUSCULAR HGB CONC 33.6 g/dl (32.0-37.0); MEAN CORPUSCULAR VOLUME 90.9 fl (82.0-101.0); MEAN PLATELET VOLUME 9.4 fl (7.4-10.4); MONOCYTE # 1.3 10^3/ul (0.3-0.9); MONOCYTES % 8.6 % (0.0-11.0); NEUTROPHIL # 10.1 10^3/ul (1.6-7.5); NEUTROPHILS % 65.3 % (39.0-77.0); PLATELET COUNT 290 10^3/UL (140-415); RED BLOOD COUNT 4.06 10^6/ul (4.70-6.10); RED CELL DISTRIBUTION WIDTH 12.7 % (11.5-14.5)
[2018-12-05 00:17] LABS: WHITE BLOOD COUNT 15.5 10^3/ul (4.8-10.8)
[2018-12-05] MEDS: SODIUM CHLORIDE 0.9% 1L BAG IV* ×2 (00:19→00:56)
[2018-12-05 00:22] LABS: URINE PH (Dip) POC 5.5 (5.0-8.5)
[2018-12-05 00:22] LABS: URINE BLOOD (Dip) POC 2+ (NEGATIVE); URINE GLUCOSE (Dip) POC Negative (NEGATIVE); URINE KETONES (Dip) POC Negative (NEGATIVE); URINE LEUKOCYTE EST (Dip) POC 1+ (NEGATIVE); URINE NITRITE (Dip) POC Negative (NEGATIVE); URINE TOTAL PROTEIN POC 1+ (NEGATIVE)
[2018-12-05 00:32] LABS: LACTIC ACID 1.8 mmol/L (0.5-2.0)
[2018-12-05 00:34] LABS: ALANINE AMINOTRANSFERASE 41 IU/L (13-69); ALBUMIN 4.6 g/dl (3.3-4.9); ALBUMIN/GLOBULIN RATIO 1.39; ALKALINE PHOSPHATASE 100 IU/L (42-121); ANION GAP 14 (5-13); ASPARTATE AMINO TRANSFERASE 44 IU/L (15-46); BILIRUBIN,INDIRECT 0.9 mg/dl (0-1.1); BILIRUBIN,TOTAL 0.9 mg/dl (0.2-1.3); BLOOD UREA NITROGEN 16 mg/dl (7-20); CALCIUM 9.8 mg/dl (8.4-10.2); CARBON DIOXIDE 25 mmol/L (21-31); CHLORIDE 101 mmol/L (97-110); Estimated GFR > 60 mL/min (>60); GLUCOSE 133 mg/dl (70-220); POTASSIUM 4.2 mmol/L (3.5-5.1); SODIUM 140 mmol/L (135-144); TOTAL PROTEIN 7.9 g/dl (6.1-8.1)
[2018-12-05 00:36] LABS: INR 0.99; PARTIAL THROMBOPLASTIN TIME 33.5 Sec (23.0-35.0); PROTIME 13.2 Sec (11.9-14.9)
[2018-12-05 00:45] LABS: TROPONIN-I < 0.012 ng/ml (0.000-0.120)
[2018-12-05 00:54] LABS: ADD UMIC YES; UR ASCORBIC ACID NEGATIVE (NEGATIVE); UR BACTERIA FEW /HPF (NONE SEEN); UR BILIRUBIN (Dip) NEGATIVE (NEGATIVE); UR BLOOD (Dip) 2+ mg/dL (NEGATIVE); UR CLARITY CLOUDY (CLEAR); UR COLOR YELLOW (YELLOW); UR GLUCOSE (Dip) NEGATIVE (NEGATIVE); UR KETONES (Dip) NEGATIVE (NEGATIVE); UR LEUKOCYTE ESTERASE (Dip) 3+ Leu/ul (NEGATIVE); UR MUCUS FEW /HPF (NONE SEEN); UR NITRITE (Dip) NEGATIVE (NEGATIVE); UR RBC 17 /HPF (0-5); UR SPECIFIC GRAVITY (Dip) 1.027 (1.003-1.030); UR TOTAL PROTEIN (Dip) 1+ mg/dl (NEGATIVE); UR UROBILINOGEN (Dip) NEGATIVE (NEGATIVE); UR WBC > 182 /HPF (0-5)
[2018-12-05] MEDS: KETOROLAC 30 MG INJ IV (00:58)
[2018-12-05] MEDS: CEFTRIAXONE 1 GM/50 ML (PMX) 50 ML IVPB (01:18)
== END 2018-12-05 03:21 | disposition home or self-care (01) ==
LOC: FTE 15:34 → E/R 12-05 03:21
DX: N39.0 Urinary tract infection, site not specified (principal); E86.0 Dehydration; D64.9 Anemia, unspecified; R06.02 Shortness of breath; I10 Essential (primary) hypertension; I25.2 Old myocardial infarction; E11.9 Type 2 diabetes mellitus without complications; Z87.891 Personal history of nicotine dependence; Z79.4 Long term (current) use of insulin; Z79.82 Long term (current) use of aspirin
CPT/HCPCS: 36415; 71045; 80053; 81001; 81003; 83605; 84484; 85025; 85610; 85730; 87040; 87045; 87086; 93005; 96374; 96375; 99285-25

== ENCOUNTER 2019-06-12 21:16 | Emergency (ER) | payer OTHER, BC ==
[2019-06-12] MEDS: SOD CHLORIDE 0.9% 1,000 ML IV (22:59)
[2019-06-12] MEDS: ONDANSETRON 4 MG INJ IV (23:06)
[2019-06-12] MEDS: ACETAMINOPHEN 325 MG TAB PO (23:06)
[2019-06-12 23:10] LABS: ADD MAN DIFF? NO
[2019-06-12 23:13] LABS: BASOPHIL # 0.1 10^3/ul (0.0-0.1); BASOPHILS % 0.6 % (0.0-2.0); EOSINOPHILS # 1.1 10^3/ul (0.0-0.5); EOSINOPHILS % 8.6 % (0.0-7.0); HEMATOCRIT 40.7 % (42.0-52.0); HEMOGLOBIN 13.8 g/dl (14.0-18.0); LYMPHOCYTES # 2.9 10^3/ul (0.8-2.9); LYMPHOCYTES % 23.4 % (15.0-51.0); MEAN CORPUSCULAR HEMOGLOBIN 30.7 pg (29.0-33.0); MEAN CORPUSCULAR HGB CONC 33.9 g/dl (32.0-37.0); MEAN CORPUSCULAR VOLUME 90.4 fl (82.0-101.0); MEAN PLATELET VOLUME 9.4 fl (7.4-10.4); MONOCYTES % 8.5 % (0.0-11.0); NEUTROPHIL # 7.2 10^3/ul (1.6-7.5); NEUTROPHILS % 58.5 % (39.0-77.0); PLATELET COUNT 257 10^3/UL (140-415)
[2019-06-12 23:13] LABS: WHITE BLOOD COUNT 12.3 10^3/ul (4.8-10.8)
[2019-06-12 23:20] LABS: ADD UMIC YES; UR ASCORBIC ACID NEGATIVE (NEGATIVE); UR BACTERIA FEW /HPF (NONE SEEN); UR BILIRUBIN (Dip) NEGATIVE (NEGATIVE); UR BLOOD (Dip) NEGATIVE (NEGATIVE); UR CLARITY CLEAR (CLEAR); UR COLOR YELLOW (YELLOW); UR GLUCOSE (Dip) NEGATIVE (NEGATIVE); UR KETONES (Dip) NEGATIVE (NEGATIVE); UR LEUKOCYTE ESTERASE (Dip) 1+ Leu/ul (NEGATIVE); UR NITRITE (Dip) NEGATIVE (NEGATIVE); UR RBC 4 /HPF (0-5); UR SPECIFIC GRAVITY (Dip) 1.023 (1.003-1.030); UR TOTAL PROTEIN (Dip) NEGATIVE (NEGATIVE); UR UROBILINOGEN (Dip) NEGATIVE (NEGATIVE); UR WBC 40 /HPF (0-5)
[2019-06-12 23:31] LABS: ALANINE AMINOTRANSFERASE 74 IU/L (13-69); ALBUMIN 4.3 g/dl (3.3-4.9); ALBUMIN/GLOBULIN RATIO 1.19; ALKALINE PHOSPHATASE 113 IU/L (42-121); ANION GAP 8 (5-13); ASPARTATE AMINO TRANSFERASE 101 IU/L (15-46); BILIRUBIN,INDIRECT 0.4 mg/dl (0-1.1); BILIRUBIN,TOTAL 0.4 mg/dl (0.2-1.3); BLOOD UREA NITROGEN 20 mg/dl (7-20); CALCIUM 9.7 mg/dl (8.4-10.2); CARBON DIOXIDE 27 mmol/L (21-31); CHLORIDE 103 mmol/L (97-110); Estimated GFR 57 mL/min (>60); GLUCOSE 128 mg/dl (70-220); LIPASE 245 U/L (23-300); POTASSIUM 4.2 mmol/L (3.5-5.1); SODIUM 138 mmol/L (135-144); TOTAL PROTEIN 7.9 g/dl (6.1-8.1)
[2019-06-12 23:43] LABS: TROPONIN-I < 0.012 ng/ml (0.000-0.120)
[2019-06-13] MEDS: CEFTRIAXONE 1 GM/50 ML (PMX) 50 ML IVPB (00:17)
== END 2019-06-13 01:11 | disposition home or self-care (01) ==
LOC: FTE 06-13 01:11
DX: N39.0 Urinary tract infection, site not specified (principal); I10 Essential (primary) hypertension; E11.9 Type 2 diabetes mellitus without complications; I25.10 Atherosclerotic heart disease of native coronary artery without angina pectoris; I25.2 Old myocardial infarction; R79.89 Other specified abnormal findings of blood chemistry; R94.5 Abnormal results of liver function studies; Z79.4 Long term (current) use of insulin; Z79.82 Long term (current) use of aspirin; Z87.891 Personal history of nicotine dependence
CPT/HCPCS: 36415; 80053; 81001; 83690; 84484; 85025; 87086; 93005; 96361; 96365; 96375; 99284-25